=== PATIENT | female | born 1995 | race Two or more races ===

== ENCOUNTER → 2022-09-18 | Outpatient (CLI) | payer OTHER | LOC: M WHC 06:53 | PROVIDERS: ATTEND Advanced Practice Midwife | DX: Z34.92 Encounter for supervision of normal pregnancy, unspecified, second trimester (principal); Z3A.22 22 weeks gestation of pregnancy ==

== ENCOUNTER 2023-01-17 22:18 | Outpatient (CLI) | payer OTHER ==
[~2023-01-17] VITALS: Ht 165.1 cm; Wt 66.8 kg
[2023-01-17 22:24] VITALS: BP 128/70
[2023-01-17] MEDS ORDERED: PRENTAB9 PO ×2 (22:28)
[2023-01-17] MEDS ORDERED: HOME MED LIST COMPLETE! XX SCH (22:30)
[2023-01-18] VITALS: BP 128/76
[2023-01-18] MEDS ORDERED: diphenhydrAMINE 50MG CAP PO ONE (01:00)
== END 2023-01-18 01:04 | disposition home or self-care (01) ==
LOC: M LDO 22:18
PROVIDERS: ATTEND Obstetrics & Gynecology
DX: O47.03 False labor before 37 completed weeks of gestation, third trimester (principal); Z3A.00 Weeks of gestation of pregnancy not specified
CPT/HCPCS: 59025; G0463

== ENCOUNTER 2023-01-18 06:48 | Inpatient (IN) | payer OTHER ==
[2023-01-18] VITALS (24 sets, daily range): BP systolic 95–157; BP diastolic 50–81; O2SAT 99
[~2023-01-18] VITALS: Ht 165.1 cm; Wt 66.8 kg
[~2023-01-18 06:48] MED LIST: PRENTAB9 PO
[2023-01-18] MEDS ORDERED: LIDOCAINE 1% MDV 20ML VIAL INFIL PRN (07:00)
[2023-01-18] MEDS ORDERED: OXYTOCIN INJ 10UNITS/ML 1ML VIAL IM PRN (07:00)
[2023-01-18] MEDS ORDERED: LR 1,000 ML IV SCH (07:00)
[2023-01-18] MEDS ORDERED: OXYTOCIN DRIP 30 UNITS in IV 1 EA IV PRN ×6 (07:00)
[2023-01-18] MEDS ORDERED: TRANEXAMIC ACID INJection 1,000 MG in NS 100 ML IV PRN (07:00)
[2023-01-18] MEDS ORDERED: METHYLERGONOVINE MALEATE 0.2MG/ML 1ML VIAL IM PRN (07:00)
[2023-01-18] MEDS ORDERED: LACTATED RINGER'S 1000 ML IV STA (07:00)
[2023-01-18] MEDS ORDERED: CARBOPROST TROMETHAMINE 250 MCG/ML AMP IM PRN (07:00)
[2023-01-18 07:22] LABS: HEMATOCRIT 37.6 % (36.0-47.0); HEMOGLOBIN 13.1 g/dl (12.0-15.5); MEAN CORPUSCULAR HEMOGLOBIN 35.9 pg (27.0-33.0); MEAN CORPUSCULAR HGB CONC 34.8 g/dl (32.0-36.5); PLATELET COUNT, AUTOMATED 134 10^3/uL (150-450); RED BLOOD COUNT 3.65 10^6/uL (4.00-5.40); WHITE BLOOD COUNT 13.6 10^3/uL (4.0-10.0)
[2023-01-18] MEDS ORDERED: NALOXONE INJ 0.4MG/1ML VIAL IV PRN (07:45)
[2023-01-18] MEDS ORDERED: LR 500 ML IV PRN (07:45)
[2023-01-18] MEDS ORDERED: diphenhydrAMINE 50MG/ML VIAL IV PRN (07:45)
[2023-01-18] MEDS ORDERED: ONDANSETRON 4MG 2ML VIAL IV PRN (07:45)
[2023-01-18] MEDS ORDERED: ePHEDrine SULFATE 25 MG/5 ML(5MG/ML) SYRINGE IVP PRN (07:45)
[2023-01-18] MEDS ORDERED: EPIDURAL/PCA KEYS XX PRN (07:45)
[2023-01-18] MEDS ORDERED: FENTANYL/ROPIVACAINE/NACL BAG 100 ML EPIDURAL SCH (07:45)
[2023-01-18] MEDS: PRENATAL VITAMINS CHEWABLE TABLET PO SCH (09:00)
[2023-01-18] MEDS ORDERED: CALCIUM CARBONATE 500 MG CHEW U/D PO ONE (12:05)
[2023-01-18 12:47] LABS: CORD GAS ABE A -4.9; CORD GAS HCO3 A 22.4 MMOL/L; CORD GAS O2 SAT A 86.1 %; CORD GAS PCO2 A 49.5 mmHg; CORD GAS PH A 7.274 UNITS; CORD GAS PO2 A 47.8 mmHg; CORD GAS SBC A 20.2 MMOL/L; CORD GAS TCO2 A 23.9 MMOL/L
[2023-01-18 12:48] LABS: CORD GAS ABE V -5.6; CORD GAS HCO3 V 19.9 MMOL/L; CORD GAS O2 SAT V 80.4 %; CORD GAS PCO2 V 38.9 mmHg; CORD GAS PH V 7.326 UNITS; CORD GAS PO2 V 36.7 mmHg; CORD GAS SBC V 19.5 MMOL/L; CORD GAS TCO2 V 21.1 MMOL/L
[2023-01-18] MEDS ORDERED: ANUSOL HC CREAM 30GM TOP PRN (13:10)
[2023-01-18] MEDS ORDERED: MOM 30ML SUSPENSION UDC PO PRN (13:10)
[2023-01-18] MEDS ORDERED: RHOGAM 300MCG (1500IU) INJ IM SCH (13:10)
[2023-01-18] MEDS ORDERED: DIBUCAINE 1% OINTMENT 30GM TOP PRN (13:10)
[2023-01-18] MEDS: ACETAMINOPHEN 500 MG TAB PO PRN ×2 (14:00→20:13)
[2023-01-18] MEDS: IBUPROFEN 800 MG TAB PO PRN (17:52)
[2023-01-18] MEDS: DOCUSATE SODIUM 100MG CAPSULE PO PRN (20:14)
[2023-01-19] MEDS: IBUPROFEN 800 MG TAB PO PRN ×3 (00:43→16:34)
[2023-01-19] MEDS ORDERED: oxyCODONE 5MG TAB PO ONE (03:00)
[2023-01-19 06:00] VITALS: BP 119/64; O2SAT 97
[2023-01-19] MEDS: PRENATAL VITAMINS CHEWABLE TABLET PO SCH (08:58)
[2023-01-19] MEDS: ACETAMINOPHEN 500 MG TAB PO PRN ×2 (12:46→18:25)
[2023-01-19 18:00] VITALS: BP 138/81; O2SAT 100
[2023-01-19] MEDS: DOCUSATE SODIUM 100MG CAPSULE PO PRN (20:09)
[2023-01-20] MEDS: IBUPROFEN 800 MG TAB PO PRN ×2 (00:55→13:50)
[2023-01-20 06:00] VITALS: BP 119/73; O2SAT 98
[2023-01-20] MEDS: ACETAMINOPHEN 500 MG TAB PO PRN (06:54)
[2023-01-20] MEDS ORDERED: MEASLES,MUMPS,RUBELLA VACCINE INJ (MMR-II) SC.IMMUN ONE (09:00)
[2023-01-20] MEDS ORDERED: COLA100C5 PO (09:19)
[2023-01-20] MEDS ORDERED: IBUP80TA PO (09:19)
[2023-01-20] MEDS ORDERED: ACET-683 PO (09:19)
[2023-01-20] MEDS: PRENATAL VITAMINS CHEWABLE TABLET PO SCH (09:23)
== END 2023-01-20 14:00 | disposition home or self-care (01) | DRG 807 ==
LOC: M LDO 06:48 → M LDI 06:52 → M OBS 16:08
PROVIDERS: ADMIT Obstetrics & Gynecology; ATTEND Obstetrics & Gynecology
PROC: 10E0XZZ Delivery of Products of Conception, External Approach (ICD-10-PCS; principal; 2023-01-18)
PROC: 0KQM0ZZ Repair Perineum Muscle, Open Approach (ICD-10-PCS; 2023-01-18)
PROC: 10907ZC Drainage of Amniotic Fluid, Therapeutic from Products of Conception, Via Natural or Artificial Opening (ICD-10-PCS; 2023-01-18)
DX: O48.0 Post-term pregnancy (principal); Z37.0 Single live birth; Z3A.40 40 weeks gestation of pregnancy; O77.0 Labor and delivery complicated by meconium in amniotic fluid; O70.1 Second degree perineal laceration during delivery